=== PATIENT | male | born 2000 | race Hispanic/Latino ===

== ENCOUNTER 2020-06-27 21:06 | Emergency (ER) | payer SELFPAY ==
[~2020-06-27] VITALS: Ht 172.7 cm; Wt 115.0 kg
[2020-06-27 22:27] VITALS: BP 148/77
== END 2020-06-27 22:30 | disposition home or self-care (01) | DRG 563 ==
LOC: ED 21:06
PROC: 2W3JX1Z Immobilization of Right Finger using Splint (ICD-10-PCS; principal; 2020-06-27)
DX: S62.646B Nondisplaced fracture of proximal phalanx of right little finger, initial encounter for open fracture (principal); W22.8XXA Striking against or struck by other objects, initial encounter; Y93.89 Activity, other specified; Y92.79 Other farm location as the place of occurrence of the external cause; Y99.0 Civilian activity done for income or pay

== ENCOUNTER 2022-02-19 23:13 | Emergency (ER) | payer MEDICAID ==
[~2022-02-19] VITALS: Ht 172.7 cm; Wt 113.0 kg
[2022-02-19 23:21] VITALS: BP 141/86
[2022-02-19 23:31] VITALS: BP 131/79
[2022-02-19 23:43] LABS: HEMATOCRIT 41.9 % (39.0-50.0); HEMOGLOBIN 13.4 g/dl (14.0-18.0); IMMATURE GRANULOCYTES 0.1 % (0.0-5.0); MEAN CELL VOLUME 88.2 fL CALC (80.0-100.0); MEAN CORPUSCULAR HGB 28.2 pG CALC (26.0-32.0); NEUT# 5.52 thou/uL (1.82-7.42); RED BLOOD COUNT 4.75 mill/uL (4.70-6.10); RED CELL DISTRI WIDTH 12.9 % (11.5-15.5)
[2022-02-19 23:58] LABS: ALBUMIN 4.5 g/dL (3.2-5.0); ALKALINE PHOSPHATASE 67 u/l (38-126); ANION GAP 11 (6-22 (CALC)); BILIRUBIN, TOTAL 0.3 mg/dL (0.0-1.4); BUN 15 mg/dL (9-20); BUN/CREATININE RATIO 15 (12-20 (CALC)); CARBON DIOXIDE 27 mmol/l (22-30); CHLORIDE 106 mmol/l (95-108); GFR FOR AFR.AMER. > 60 ML/MIN (>=60 (CALC)); GFR OTHER RACES > 60 ML/MIN (>=60 (CALC)); LIPASE 33 u/l (23-300); SGOT/AST 28 u/l (17-59); SODIUM 140 mmol/l (137-146)
[2022-02-20 00:10] LABS: MYOGLOBIN 36 ng/mL (0 - 121)
[2022-02-20 00:20] LABS: ACT PARTIAL THROMBO TIME 27.9 SECONDS (20.0-32.5); PROTHROMBIN TIME 10.3 SECONDS (9.0-12.5)
[2022-02-20 00:22] LABS: D-DIMER 0.22 mg/L (0.19-0.60)
[2022-02-20 00:31] VITALS: BP 121/73
[2022-02-20 00:53] VITALS: BP 121/73
== END 2022-02-20 01:01 | disposition home or self-care (01) ==
LOC: ED 23:13
PROVIDERS: Family Medicine
DX: R07.9 Chest pain, unspecified (principal); R51.9 Headache, unspecified; Z20.822 Contact with and (suspected) exposure to COVID-19